=== PATIENT | female | born 1930 | race Caucasian/White ===

== ENCOUNTER 2016-12-16 20:21 | Inpatient (IN) | payer MEDICARE ==
[~2016-12-16] VITALS: Ht 172.7 cm; Wt 56.2 kg
--- NOTE | ~2016-12-16 | CT18 ---
[facility] A Service [facility] RADIOLOGY TEXT RESULTS PATIENT: AMRITA CHAN LOCATION: [place] [address]- : 31 UNIT #: [id number] AGE: [address]: Savanna Nieto MD SEX: F ORDER DR: [id number] [facility] [address] [place], [place] [address] [id number] I MR#: [id number] Acc #: [id number] NAME: AMRITA CHAN. : 1930 SEX: F STUDY DATE/TIME: 12/16/2016 21:34 UNIT: [facility] ROOM: [facility] STUDY DESCRIPTION: CT Angio Head Stroke Attending Physician: Savanna Nieto M.D. Ordering Physician: Jasbir Apple M.D. Primary Care Physician: No Primary Care Physician MEDICAL IMAGING REPORT This report is preliminary unless electronic signature is present EXAM CTA head and neck. INDICATIONS Focal neurological deficit. Intracranial aneurysm. Right-sided weakness and slurred speech for [address] angiography of the head and neck utilizing 100 mL Isovue-370 IV contrast. Coronal 3-D MIP reconstructions and standard sagittal reconstructions were obtained. Volume-rendered reconstructions were obtained. Curved planar reconstructions were also reviewed. This CT exam was performed with one or more of the following radiation dose reduction techniques: automatic exposure control, adjustment of mA and/or kV according to patient size, and iterative reconstruction. COMPARISON CT head 12/16/2016 and 04/10/2015. FINDINGS CTA NECK: Evaluation for significant carotid arterial stenosis is based upon NASCET criteria. There is a 3-vessel arch. The arch vessels have moderate atherosclerotic disease near their origins; however, they all appear to be widely patent. There is mild to moderate atherosclerotic disease involving the common carotid arteries and the internal carotid arteries; however, there is no evidence of a significant carotid arterial stenosis. The vertebral arteries have mild to moderate atherosclerotic disease, but there is no evidence of a significant stenosis. CTA HEAD: The intracranial internal carotid arteries are patent. There [facility] A Service [facility] RADIOLOGY TEXT RESULTS PATIENT: AMRITA CHAN LOCATION: [address] : 31 UNIT #: [id number] AGE: [address]: Savanna Nieto MD SEX: F ORDER DR: is mild atherosclerotic disease; however, there is no evidence of a significant stenosis. There is a saccular aneurysm involving the right MCA trifurcation. The neck of the aneurysm measures 0.5 cm with the aneurysm measuring up to 1.0 cm. This aneurysm is unchanged from at least 2008. The remainder of the middle cerebral artery is patent. The left middle cerebral artery is patent. The anterior cerebral arteries and the anterior communicating artery are patent. There is a small saccular aneurysm off the right A2 anterior cerebral artery measuring 0.4 x 0.3 cm. The neck of the aneurysm measure 0.2 cm. The vertebrobasilar arteries are within normal limits. There is mild atherosclerotic disease; however, there is no evidence of a significant stenosis, thrombosis, or aneurysm. Both posterior cerebral arteries are patent. No dural venous thrombus. No acute osseous abnormalities. IMPRESSION 1. Mild atherosclerotic disease of the carotid arteries, however, no evidence of a significant carotid arterial stenosis in the neck. 2. Mild atherosclerotic disease of the intracranial vasculature; however, no evidence of a significant stenosis, thrombosis, or aneurysm. 3. 1-cm peripherally calcified aneurysm at the right MCA trifurcation is unchanged from at least 2008. 4. 4-mm aneurysm of the A2 segment of the right anterior cerebral artery. Not mentioned above, there is a small 2-mm saccular aneurysm off the distal aspect of the left internal carotid artery. Dictated by... Terence Garnica M.D. THIS IS AN ELECTRONICALLY VERIFIED REPORT Terence Garnica M.D. at 12/17/2016 3:11 PM Niecy TD: 12/17/2016 13:18 JOB #: [id number] MEDICAL IMAGING REPORT Page 1 of 1 COPY
--- NOTE | ~2016-12-16 | CR72 ---
[facility] A Service of [facility] RADIOLOGY TEXT RESULTS PATIENT: AMRITA CHAN LOCATION: [address]21 : 31 UNIT #: [id number] AGE: [address]: Savanna Nieto MD SEX: F ORDER DR: [id number] [facility] [address] [place], [place] [address] [id number] I MR#: [id number] Acc #: [id number] NAME: AMRITA CHAN. : 1930 SEX: F STUDY DATE/TIME: 12/16/2016 20:44 UNIT: [facility] ROOM: [facility] STUDY DESCRIPTION: CR Chest Single View Portable Attending Physician: Savanna Nieto M.D. Ordering Physician: Ed Doctor [id number] [facility] Primary Care Physician: Primary Care Physician No MEDICAL IMAGING REPORT This report is preliminary unless electronic signature is present EXAM Single view chest INDICATION Chest pain and right-sided weakness for 1 day. FINDINGS Single portable AP view of the chest compared to 11/29/2016. Heart and mediastinal contours are unchanged. There is chronic interstitial opacities in both lungs. No pneumothorax or pleural effusion. There is severe arthrosis of the right glenohumeral joint. IMPRESSION No acute cardiopulmonary findings or significant interval change. Dictated by... Terence Garnica M.D. THIS IS AN ELECTRONICALLY VERIFIED REPORT Terence Garnica M.D. at 12/17/2016 3:08 PM TONY/chantale TD: 12/17/2016 12:04 JOB #: [id number] MEDICAL IMAGING REPORT Page 1 of 1 COPY
--- NOTE | ~2016-12-16 | HP ---
Unit #: [id number] #: [id number] Patient: AMRITA CHAN [id number] [facility] [address] [place], [place] [address] [id number] I MR#: [id number] NAME: AMRITA CHAN ROOM: [facility] Age: 86 Sex: F Admission Date: 12/16/2016 : 1930 Attending Physician: Elis Hartmann M.D. Primary Care Physician: No Primary Care Physician HISTORY AND PHYSICAL CHIEF COMPLAINT CVA. HISTORY OF PRESENT ILLNESS This 86-year-old female who is legally blind, hard of hearing with hypertension is admitted following a CVA. The patient was admitted to [facility] recently for pneumonia and sent to [facility]. At around 8:10 p.m., her son got her out of bed. She was unable to walk, had a right lower facial droop, unable to articulate and right-sided weakness more in the right arm. A CODE stroke was called and the patient was brought to this emergency department where head CT and CTA of the head and neck showed no acute disease. The case was discussed with Dr. Montanez and the patient was given TPA. Her speech is improved as is her right lower facial droop. She is still extremely weak in her right arm. PAST MEDICAL HISTORY 1. Essential hypertension. 2. Hyperlipidemia. 3. Goiter status post thyroidectomy with hypothyroidism. 4. Legally blind. 5. Hard of hearing. 6. Recent admission to [facility] for pneumonia. 7. Lumbar spinal fusion. 8. History of depression. 9. DJD. 10. Status post left mastectomy for breast cancer. 11. ORIF left hip fracture. SOCIAL HISTORY The patient is receiving rehab here at [facility]. She stopped smoking five years ago, does not drink alcohol. FAMILY HISTORY Noncontributory given patient's age. ALLERGIES None. SNF MEDICATIONS 1. Synthroid 0.1 mg daily. 2. Benazepril 40 mg daily. 3. Norvasc 5 mg daily. Unit #: [id number] #: [id number] Patient: AMRITA CHAN 4. Zocor 20 mg daily. 5. PRN Tylenol. 6. Rudyard. REVIEW OF SYSTEMS Difficult to obtain as the patient is extremely hard of hearing. PHYSICAL EXAMINATION GENERAL APPEARANCE: Pleasant, hard of hearing 86-year-old female who currently is in no acute distress. VITAL SIGNS: Temperature not yet obtained. Pulse 86. Respiration 16. Initial blood pressure I am told was a systolic of 105 but current systolic blood pressure is 169/76. O2 saturation is 97% on room air. HEENT: Eyes: PERRLA. Extraocular muscles are intact. Pharynx is benign. NECK: Supple without adenopathy or thyromegaly. CHEST: Clear. CARDIAC: Normal S1, S2. Very soft systolic murmur best heard at the upper sternal borders. ABDOMEN: Bowel sounds are present. No hepatosplenomegaly, tenderness or masses. EXTREMITIES: Without edema. Pedal pulses are diminished. NEUROLOGIC: The patient has been very hard of hearing and she is legally blind. Her speech, however, is fluent. She is alert and oriented x2. She has good strength on the left, is able to move her right leg fairly well, probably 4/5 strength. She is, however, extremely weak in the arm and maybe has some tone in the right arm but otherwise her right arm and right grasp are pretty flaccid. Right great toe is upgoing. DIAGNOSTIC STUDIES LABORATORY: Hematocrit 38. Normal white count, platelet count and coags. SMA-12: Glucose 216, BUN 28, sodium 129, calcium 8.3. IMAGING: Head CT: No acute disease. CTA of the head and neck show mild atherosclerotic disease in the carotids, 1 cm aneurysm at the trifurcation which is unchanged, 4 mm aneurysm at the A2 segment of the right LUCY. CARDIOVASCULAR: EKG shows a sinus rhythm rate 84, LVH. ASSESSMENT 1. CVA with mainly right-sided weakness at this time. The patient did have expressive aphasia along with mild right-sided weakness and right lower facial droop before the TPA. She is somewhat improved. 2. Intracranial aneurysms noted on CTA. 3. Essential hypertension. 4. Legally blind. 5. Hard of hearing. 6. Hypothyroidism status post thyroidectomy. 7. Hyperlipidemia. 8. Status post left mastectomy for breast cancer. PLAN 1. TPA was given. Neurology consulted. 2. Post TPA orders. 3. NPO except for some of the patient's blood pressure medicines. Cardene will be given for high blood pressures as well. 4. Check serial cardiac enzymes, lipid profile in the morning along with repeat labs in the morning. 5. SCDs for DVT prophylaxis. Unit #: [id number] #: [id number] Patient: AMRITA CHAN 6. The patient is a FULL CODE. 7. Check hemoglobin A1C given initial elevated glucose. 8. Urinalysis. Critical care time spent in evaluating this patient was 30 minutes. Dictated by Candy Frost/jeri TD: 12/17/2016 06:46 JOB #: [id number] HISTORY AND PHYSICAL Page 1 of 1 X lEis Hartmann MD X HISTORY AND PHYSICAL
--- NOTE | ~2016-12-16 | EKG ---
PATIENT: AMRITA CHAN UNIT #: [id number] Ventricular Rate: 84 BPM Atrial Rate: 84 BPM P-R Interval: 166 ms QRS Duration: 102 ms Q-T Interval: 382 ms QTC Calculation(Bezet): 451 ms P [place]: 72 degrees Calculated R [place]: 41 degrees Calculated T [place]: 69 degrees Diagnosis Line: Normal sinus rhythm Diagnosis Line: Moderate voltage criteria for LVH, may be normal Diagnosis Line: variant Diagnosis Line: Otherwise normal ECG Diagnosis Line: When compared with ECG of 24-MAY-2011 06:39, Diagnosis Line: No significant change was found Diagnosis Line: Confirmed by DARREN RYDER MD ([id number]) on 12/19/2016 Diagnosis Line: 7:55:49 AM INTERPRETING MD: BRITNI CANO
--- NOTE | ~2016-12-16 | DS ---
Unit #: [id number] #: [id number] Patient: AMRITA CHAN [id number] [place] [id number] [facility]. [place], [place] [address] [id number] I MR#: [id number] NAME: AMRITA CHAN. ROOM: 329 Age: 86 Sex: F Admission Date: 12/16/2016 : 1930 Discharge Date: 12/20/2016 Attending Physician: Savanna Nieto M.D. Primary Care Physician: No Primary Care Physician DISCHARGE SUMMARY PRINCIPAL DIAGNOSES 1. Left MCA frontal embolic CVA with subsequent right arm greater than right leg weakness. The patient is status post Alteplase. 2. Aortic atheroma. 3. Toxic metabolic encephalopathy. Now resolved. 4. 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 5. Hypertension, uncontrolled. 6. Non-anion gap metabolic acidosis. Now resolved. 7. Hypothyroidism. 8. Legally blind. 9. Hard of hearing. 10. Known intracranial aneurysm. 11. Hyperlipidemia. 12. History of breast cancer. 13. Mild protein malnutrition. 14. Mild vitamin B12 deficiency with vitamin B12 level of 267. 15. Osteoporosis. CONSULTANTS Dr. Montanez, neurology. PROCEDURES MARGARITA on 12/18/2016 with ejection fraction of 55%. Septal asymmetric hypertrophy noted. Mildly dilated left atrium noted. Mild mitral valve prolapse. Mild to moderate mitral regurgitation. Mild tricuspid regurgitation. No evidence of clot in the left atrial appendage or vegetation. Severe diffuse extensive atherosclerotic plaque in the aorta with grade 4 calcified and fresh atheromas noted. DIAGNOSTIC DATA IMAGING: CT of the head without contrast on 12/16/2016 with no acute intracranial findings. Chest x-ray on 12/16/2016 with no acute findings. Severe arthrosis of the right glenohumeral joint was noted. CT angiogram of the neck on 12/16/2016 with mild atherosclerotic disease of the carotid arteries, but no evidence of significant carotid arterial stenosis in the neck. Mild atherosclerotic disease of the intracranial vasculature, but no evidence of stenosis, thrombosis or aneurysm. There is a 1 cm calcified aneurysm of the right MCA trifurcation that is stable since 2008. There is a 4 mm aneurysm of the A2 segment of the right anterior cerebral artery. There is a small 2 mm saccular aneurysm off the Unit #: [id number] #: [id number] Patient: AMRITA CHAN left internal carotid artery. MRI of the brain without contrast on 12/17/2016 with an acute to late acute nonhemorrhagic infarct in the left posterior frontal operculum. It extends toward the posterior left insular cortex. 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 Scattered T2 signal lesions in the brain consistent with chronic microvascular ischemia change. CLINICAL HISTORY/HOSPITAL COURSE Ms. Chan is an 86-year-old female transferred from rehab after it was noted that she was unable to walk and had right facial droop. She was also having difficulty with dysarthria. Code stroke was called in the emergency room and the patient was administered Alteplase and subsequently admitted to the ICU. Dr. Montanez was consulted. The patient underwent MRI of the brain which fortunately did not reveal any post Alteplase hemorrhage, but did indeed reveal stroke. Given imaging up to that point had been unremarkable and there were concerns about a cardioembolic source, the patient underwent MARGARITA with findings of significant atheroma of the aorta, which was likely her source of stroke. She has been placed on bridging Lovenox in addition to Coumadin. The risks and benefits of this treatment have been discussed with both her son and granddaughter. Will also need risk factor modification, including blood pressure control and lipid lowering therapy. She continues to have some significant right-sided weakness, much greater in the right arm and the right leg, and per physical therapy is most appropriate for subacute rehab, which is being arranged. The patient did have some significant encephalopathy upon presentation, which lasted approximately 72 hours. She does also have underlying dementia with behavioral disturbance. However, she has been placed on low-dose Risperdal and she seems to be doing a bit better. All of this has been discussed with her family as well. The patient has otherwise at this point been doing well. Blood pressure was initially elevated, which is physiologically appropriate. Blood pressure is now more controlled. She also had a non-anion gap metabolic acidosis, moreso when she was not eating, but this has also resolved. The patient will be discharged to rehab when a bed is available. DISCHARGE CONDITION Stable. DISCHARGE DISPOSITION Discharge to rehab. DISCHARGE MEDICATIONS 1. Tylenol 650 mg p.o. q.4 h. p.r.n. mild pain. 2. Lovenox 60 mg subcutaneous q.12 h., to stop when INR is greater than or equal to 2.0. 3. Norvasc 10 mg daily. 4. Lipitor 40 mg at bedtime. 5. Benazepril 20 mg daily. 6. Roma 5/325 mg 1 tablet p.o. t.i.d. p.r.n. pain. 7. Levothyroxine 100 mcg p.o. daily. 8. Coumadin 3 mg daily with goal INR 2-3. Unit #: [id number] #: [id number] Patient: AMRITA CHAN 9. Stadol 0.5 mg p.o. at nighttime. DIET The patient was instructed to follow a heart healthy diet. She can increase her activity as tolerated under the care of physical therapy and occupational therapy. I will note she is currently in a sling of her right upper extremity. DISCHARGE FOLLOWUP 1. The patient needs followup BMP on 12/21/2016, with goal INR of 2-3 and discontinuation of Lovenox when INR is therapeutic. 2. She will follow up with Dr. Bahman Boswell of outpatient neurology upon discharge from rehab. Further discussion with family regarding possible transition to long-term care after subacute rehab can be had at the rehab facility. Time spent on discharge today 32 minutes. Dictated by... Savanna Nieto M.D. TONE/shahab TD: 12/20/2016 13:43 JOB #: [id number] DISCHARGE SUMMARY Page 1 of 1 X Savanna Nieto MD X DISCHARGE SUMMARY
--- NOTE | ~2016-12-16 | MR18 ---
[facility] A Service of [facility] & [facility] RADIOLOGY TEXT RESULTS PATIENT: AMRITA CHAN LOCATION: [address]21 : 31 UNIT #: [id number] AGE: [address]: Savanna Nieto MD SEX: F ORDER DR: [id number] [facility] [address] [place], [place] [address] [id number] I MR#: [id number] Acc #: [id number] NAME: AMRITA CHAN. : 1930 SEX: F STUDY DATE/TIME: 12/17/2016 18:26 UNIT: [facility] ROOM: [facility] STUDY DESCRIPTION: MR Brain Wo Contrast Attending Physician: Savanna Nieto M.D. Ordering Physician: Patti Geller A.P.R.N. Primary Care Physician: Porsche Primary Care Physician MRI CENTER REPORT This report is preliminary unless electronic signature is present. EXAM MRI of the brain without contrast, dated 12/17/2016. COMPARISON CT head without contrast and CT angiogram head and neck dated 12/16/2016. HISTORY Stroke yesterday with t-PA on 12/16/2016. History of hypertension. Patient is legally blind. History of breast cancer diagnosed 25 years ago. Patient also has history of dementia. Probable TIA in the past. FINDINGS Multisequence, multiplanar imaging of the brain was obtained without contrast. Motion artifact is noted in multiple sequences. Mild restricted diffusion lesion is noted in the posterior left frontal operculum extending to the posterior left insular cortex. It is difficult to measure given its irregular shape. It is about 3.4 x 1.8 cm in greatest axial dimensions. They are not well seen in the T2 sequences particularly in the posterior left frontal operculum with some increased T2-signal in the posterior left insular cortex. Also seen at multiple hyperintense T2-signal lesions in the periventricular white matter with some in the subcortical white matter. Increased T2 lesions are also noted in the superior aspect of bilateral basal ganglia. Thick slices through the sella with the pituitary gland, pineal region and upper cervical spine do not demonstrate any significant abnormality. Paranasal sinuses, mastoid air cells and orbits do not demonstrate any significant abnormality. There is a prominent vascular flow void noted in the axial T2 sequence measuring 8 x 7.5 mm (series 10, image 10). It is suspicious for an aneurysm. Motion artifact is seen in multiple images. IMPRESSION 1. There appears to be an acute to late acute nonhemorrhagic infarct in the region of the left posterior frontal operculum. It extends [facility] A Service of [facility] RADIOLOGY TEXT RESULTS PATIENT: AMRITA CHAN [facility] UNIT #: [id number] AGE: [address]: Savanna Nieto MD SEX: F ORDER DR: towards the posterior left insular cortex but it has some signal changes favoring a more subacute ischemic insult in the posterior insular cortex. 2. 8 x 7.5 mm right middle cerebral artery aneurysm is suspected along the M1 segment close to the right MCA trifurcation. Refer to CT angiogram head and neck from yesterday. 3. Scattered multiple hyperintense T2-signal lesions are noted in the brain, likely related to chronic microvascular ischemic change or migraine based on age and statistics. Dictated by... Kelsie Singh M.D. THIS IS AN ELECTRONICALLY VERIFIED REPORT Kelsie Singh M.D. at 12/18/2016 11:33 AM CPR/alex TD: 12/18/2016 00:45 JOB #: [id number] MRI CENTER REPORT Page 1 of 1 COPY
--- NOTE | ~2016-12-16 | CT24 ---
[facility] A Service of [facility] & [facility] RADIOLOGY TEXT RESULTS PATIENT: AMRITA CHAN LOCATION: [place] [address]- : [birth year] UNIT #: [id number] AGE: [address]: Savanna Nieto MD SEX: F ORDER DR: [id number] [facility] [address] [place], [place] [address] [id number] I MR#: [id number] #: [id number] NAME: AMRITA CHAN. : 1930 SEX: F STUDY DATE/TIME: 12/16/2016 21:34 UNIT: [facility] ROOM: [facility] STUDY DESCRIPTION: CT Angio Neck Stroke Attending Physician: Savanna Nieto M.D. Ordering Physician: Ed Collin Apple M.D. Primary Care Physician: No Primary Care Physician MEDICAL IMAGING REPORT This report is preliminary unless electronic signature is present EXAM CT-A neck, stroke protocol, 12/17/2016. FINDINGS Please see CT-A head, stroke protocol, for results. Dictated by... Terence Garnica M.D. THIS IS AN ELECTRONICALLY VERIFIED REPORT Terence Garnica M.D. at 12/17/2016 3:10 PM Niecy TD: 12/17/2016 13:25 JOB #: [id number] MEDICAL IMAGING REPORT Page 1 of 1 COPY
--- NOTE | ~2016-12-16 | A ---
[facility] Nutrition Therapy DATE: 12/17/16 Patient: AMRITA CHAN Physician: KATRIN Address: [address] Room/Bed: [address], Zip: [place] [address] Admit Date: 12/16/16 Date of : 31 Height: 5 8 Weight: 135 61.6 NUTRITIONAL ASSESSMENT: REASON: Dx and NPO in ICU nutrition assessment 86 yo female admitted for stroke s/p TPA PMH: Legally blind, [place], HTN, HLD, goiter s/p thyroidectomy, hypothyroidism, PNA, depression, breast cancer s/p left mastectomy Anthropometrics: Ht: 5'7" Wt: 61.6 kg BMI: 21.3 Labs: Gluc 216 BUN 28 Ca++ 8.3 Accuchecks 180 GFR 45.8 Meds: Synthroid I/O & Bowel function: 1839/1125, last BM unknown Skin Integrity: Bruises scattered Edema: None noted Estimated Nutrition Needs: 3290-3265 kcals (25-30 kcals/kg) 62-74 grams protein (1.0-1.2 grams/kg) Diet: NPO Assessment: Chart reviewed, events noted. 86 yo female admitted from [facility] for facial droop, CVA s/p TPA. Pt is currently NPO in the ICU. Per NATIONAL SALES, CONSERVATION SCIENCE TEACHER will likely evaluate the pt tomorrow per stroke protocol. Of note, the pt is hard of hearing and legally blind. A1C is pending due to hyperglycemia. Pt has no apparent history of DM. Pt is not appropriate for diet education at this time. Please see nutrition recommendations below. Dx: Inadequate protein-energy intake RT Dx, CVA AEB NPO status, CONSERVATION SCIENCE TEACHER to evaluate the pt in the AM. Intervention: 1. CONSERVATION SCIENCE TEACHER 2. Diet per CONSERVATION SCIENCE TEACHER recommendations 3. EN if PO diet not feasible [facility] Nutrition Therapy DATE: 12/17/16 Patient: AMRITA CHAN Physician: KATRIN Address: [facility] [address] Room/Bed: [address], Zip: [place] [address] Admit Date: 12/16/16 Date of : 31 Height: 5 8 Weight: 135 61.6 Monitoring, Evaluation and Goals: 1. Oral intake; advance diet per CONSERVATION SCIENCE TEACHER recommendations if feasible 2. Improve labs; glucose, BUN, Ca++, GFR 3. EN; initiate if PO diet is not feasible Recommendations: 1. Once medically feasible, recommend CONSERVATION SCIENCE TEACHER evaluation. Advance diet per CONSERVATION SCIENCE TEACHER recommendations as appropriate. No further dietary restrictions recommend at this time until adequacy of PO intake can be assessed. RD will follow up to recommend supplements as needed. 2. If unable to advance to PO diet, consider obtaining enteral access and initiating enteral nutrition with Jevity 1.5 @ 20 mL/hr. Increase by 10 mL q 8 hrs as tolerated to goal of 45 mL/hr to provide: 1620 kcals/ 69 grams protein/ 821 mL free H20 IF THE PT IS RECEIVING SYNTHROID VIA DHT + EN: Goal rate will be Jevity 1.5 @ 50 mL/hr x 22 hrs to account for holding EN for one hour before and after Synthroid administration* This will provide: 1650 kcals/ 70 grams protein/ 836 mL free H20 Pt is at moderate nutritional risk. RD will follow hospital course per protocol. Respectfully, DUNG HERNANDEZ RD, LD Food and Nutritional Services [facility] cc: client file
--- NOTE | ~2016-12-16 | CO ---
Unit #: [id number] #: [id number] Patient: AMRITA CHAN [id number] [facility] [address]. [place], [place] [address] [id number] MR#: [id number] NAME: AMRITA CHAN ROOM: 329 Age: 86 Sex: F Admission Date: 12/16/2016 : 1930 Attending Physician: Savanna Nieto M.D. Primary Care Physician: Primary Care Physician No Consultation Date: 12/17/2016 CONSULTATION REPORT PRIMARY CARE PHYSICIAN Not listed. CONSULTING PHYSICIAN Dr. Elis Hartmann, also code stroke protocol. PATIENT IDENTIFICATION This is an 86-year-old, right-handed, female, evaluated in ICU room #21 at [facility]. SOURCE OF INFORMATION Obtained from the patient's son as well as medical record. HISTORY OF PRESENT ILLNESS This is an 86-year-old, right-handed, female with past medical history of hypertension, legal blindness, significant hard of hearing, hyperlipidemia, alcohol abuse, who presents to [facility] with right-sided weakness, expressive aphasia from [facility]. The patient was actually just recently discharged from [facility] for pneumonia. She was sent to [facility] at [facility] for rehab. Around eight o'clock in the evening, the patient was last noted to be well at her baseline per her son. He has been in her room and been visiting her frequently as she lived with him prior to her hospitalization. A little bit after that, around 0810 hours or 0815 hours, she apparently needed to get out of bed; however when her son went to help her, she was unable to walk. She had right lower facial droop. She had right arm and right leg weakness, essentially paralysis and was unable to speak clearly. At first, she was just repeating "I can't walk" according to the son, but he states then her speech became incoherent and she was unable to communicate or follow commands appropriately. I am uncertain whether a MET call was made or a code stroke first; however once the code stroke was called, the patient was brought down for CT, CTA, and then to the ER for further evaluation. The case was discussed with Dr. Montanez, who saw the patient via telemedicine robot at I believe 0827 hours and decision was made for alteplase. She arrived back to the ED by 0845 hours after imaging and had further assessment by the ED physician. Alteplase was administered 52 minutes after code stroke was initiated. Her speech improved and her right side weakness and facial droop improved; however, she does continue to have some weakness in her right upper extremity. Her NIH was documented at the time of code stroke as being 13. I believe the laborer hide house, who initially saw the patient may have documented her NIH as 16 initially. Her INH today is 7. She does have some right-sided weakness. She has some mild confusion, but she can name and identify and follow simple commands. She is legally blind and hard of Unit #: [id number] #: [id number] Patient: AMRITA CHAN hearing, but again NIH appears to be approximately 7 at this time and she is significantly improved from yesterday evening.. She does have some dysarthria, but no aphasia. Her right facial weakness has improved significantly and in her right lower extremity is improved as well. No report of any exacerbating or alleviating factors or any other associated symptoms. Onset was sudden and her last known well was while within the window for treatment with alteplase. She was not considered for thrombectomy as her CT angiogram did not show any vascular cutoff or occlusion or proximal clot. Dr. Montanez did review imaging at the time of evaluation and felt as though there may have been some possible distally decreased flow in the MCA on the left, but again no proximal cutoff. PAST MEDICAL HISTORY 1. Essential hypertension. 2. Hyperlipidemia. 3. Goiter, status post thyroidectomy. 4. Hypothyroidism. 5. Legally blind. 6. Hard of hearing. 7. Recent admission to [facility] for pneumonia. 8. Lumbar spinal fusion. 9. Depression. 10. DJD. 11. Status post left mastectomy for breast cancer. 12. ORIF of left hip fracture. 13. History of intracranial aneurysm, evaluated according to the son in the past about 7 years ago and decision was to medically manage and again with no surgical intervention. 14. History of alcohol abuse. FAMILY HISTORY Noncontributory given the patient's age in regard to the presenting condition. SOCIAL HISTORY The patient lived at home with her son prior to her hospitalization at [facility]. She transferred here from [facility] at [facility]. She was sent there for rehabilitation following her hospital stay at [facility]. She is a reformed smoker. She stopped 5 years ago. She is not a current drinker. 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 I am not exactly certain when she stopped drinking, but has not drank in a long time. No report of any illicit drug use. ALLERGIES No known drug allergies. HOME MEDICATIONS Include, 1. Synthroid. 2. Benazepril. 3. Norvasc. 4. Zocor. 5. P.r.n. Tylenol. 6. Hanna. REVIEW OF SYSTEMS Difficult to obtain. The patient is extremely hard of hearing. Pertinent Unit #: [id number] #: [id number] Patient: AMRITA CHAN positives are as discussed above. Also, I did this incoordination with the patient's son at the bedside, who helped with answering questions regarding review of systems. Please see above. PHYSICAL EXAMINATION VITAL SIGNS: Temperature 98.1. She has been afebrile. Pulse 76, respirations 18, blood pressure 164/71, and oxygen saturation 97%. Height 5 feet 8 inches, weight 135 pounds. BMI 20. NEUROLOGIC: The patient is resting comfortably. She does get a little restless with stimulation. She is legally blind. She is very hard of hearing. Disabled to hear and response to very loud voice. She can name and identify and follow commands. She has some mild dysarthria. No aphasia at this time or apraxia. Cranial nerve exam, I am unable to fully assess her king of vision. She does not respond to threats in the primary or peripheral visual king, but she is legally blind. Eyes are, however, conjugate without ptosis or nystagmus. Pupils are equal, round, reactive, 2+, brisk. Extraocular movements are intact. Sensation of face and scalp is intact. Strength of the muscles of the facial expression does not reveal any facial paralysis at this time or seventh cranial nerve findings. Hearing is intact to loud voice, but she is very hard of hearing. Tongue is midline and unable to fully visualize uvula and palate. Head turning and shoulder shrug are unremarkable. Neck is supple. Motor exam, she demonstrates normal bulk and tone on the left. Strength is 5/5 in the right upper extremity. She can lift against gravity, but does not do well with resistance. She wants to use her left hand to lift her right arm when I asked her to lift her right arm after instructed her to try to lift her arm independently, which is difficult for her. She does make attempts to pull away though when I assessed her assisted living director and her assisted living director strength is 4/5. Her right lower extremity appears to be much more intact. She was apparently flaccid yesterday. She only has a very mild drift of her right lower extremity, but it does not fall to the bed. She can lift against gravity and a little bit against resistance as well. Coordination is unremarkable. Gait and Romberg are deferred. Reflexes, unable to elicit. Toes, upgoing on the right. DIAGNOSTIC STUDIES IMAGING STUDIES: CT of the head without contrast per stroke protocol on 12/16/2016; impression per Radiology report, no acute intracranial findings. CT angiogram of the head and neck per stroke protocol on 12/16/2016; impression per Radiology report, 1. Mild atherosclerotic disease of the carotid arteries; however, no evidence of significant carotid arterial stenosis in the neck. 2. Mild atherosclerotic disease of intracranial vasculature; however, no evidence of significant stenosis, thrombosis, or aneurysm. 3. A 1 cm peripherally calcified aneurysm of the right MCA trifurcation unchanged from at least 2008. 4. A 4 mm aneurysm of the A2 segment of the right anterior cerebral artery, not mentioned above. 5. 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 Dr. Montanez reviewed the imaging and again there is decent amount of atherosclerotic disease and calcification, but no vascular cut off or hemodynamically significant narrowing. LABORATORY STUDIES: B12 is 267. PT 11.3, INR 1, and PTT 29. CRP less than 0.5. Sodium 133, potassium 5.1, chloride 103, CO2 is 20, glucose 87, BUN 20, creatinine is 1, estimated GFR 51.4, calcium 8.6, AST 18, ALT 12, alkaline phosphatase 78, total protein 6, and albumin 3.5. TSH 1.04. White blood cell count 8.9, hemoglobin is 12.8, hematocrit is 39, and platelet count is 183. Troponin is less than 0.03 x3 sets. CK 33. White Unit #: [id number] #: [id number] Patient: AMRITA CHAN count on arrival was 7.1. IMPRESSION 1. Acute left hemispheric stroke, status post alteplase in our emergency department on arrival in a patient with right-sided weakness, altered speech, likely left middle cerebral artery territory ischemic stroke, significantly improved following alteplase administration. Concern for cardioembolic origin. 2. 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 Please see above. Partially calcified and essentially unchanged since 2008. Please see above for details and please also see past medical history. 3. Possible dementia. The patient's son reports that she has had an evaluation for dementia in the past and reports that she has had a history of alcoholism in the past, but he reports at her baseline prior to admission to [facility] that she was alert and oriented, able to make her needs known, and lived with him; but did have exhibited some memory loss. 4. Hypertension. 5. Hyperlipidemia. 6. Legal blindness. 7. Hard of hearing. 8. Hypothyroidism, please see past medical history above. 9. Recent pneumonia. PLAN We will request MRI of the brain, MARGARITA in the morning. She has no prior known history of CAD or atrial fibrillation or valve disease. We will ask PT, OT, and Speech to follow tomorrow. Otherwise, postoperatively placed orders are in effect and we will continue. We will follow closely. We discussed with the son. Dr. Montanez, who has seen the patient and evaluated, and discussed with the son as well. Further recommendations pending workup and further clinical course. We thank you very much for allowing us to assist in care of this patient. Dictated by... Patti Geller A.P.R.N. for Candy Carlos/ingrid TD: 12/18/2016 15:44 JOB #: [id number] CONSULTATION REPORT Page 1 of 1 X Patti Geller [employer] PROFESSIONAL X CONSULTATION REPORT
--- NOTE | ~2016-12-16 | FU ---
[facility] Nutrition Therapy DATE: 12/20/16 Patient: AMRITA CHAN Physician: KATRIN Address: [address] Room/Bed: [address] [place] [address], Zip: [place] [address] Admit Date: 12/16/16 Date of : 31 Height: 5 8 Weight: 123 56.2 NUTRITION MONITORING/FOLLOW-UP: Reason: Follow up Anthropometrics: Ht: 5'7" Wt: 61.6 kg BMI: 21.6 Wt 12/20: 56.2 kg (lift weight) Labs: Accuchecks 79 GFR 45.8 Meds: Coumadin, sodium bicarbonate, lipitor, synthroid I&O's: 1470/8, last BM 12/18 Skin: Bruises scattered, no edema Diet: Regular + thin liquids Assessment: Chart reviewed, events noted. Pt is now on tele floor with diet ordered yesterday per BULK STATION AGENT recommendations (Regular consistency + thin liquids). Pt requires feeding assistance per BULK STATION AGENT eval. RD spoke with the pt at bedside. Pt had breakfast tray in front on her and Ensure supplement on tray. Pt consumed ~30% of her eggs so far and reported that she was will going to eat more. Pt likes Ensure supplements and reported having a "pretty good" appetite. CHUY spoke with the pt's RN, who was going to go back in and help the pt finish her breakfast. Pt is blind and is unable to feeds herself; however, she does drink the Ensure supplements by herself per RN report. RN also reports that the pt will likely not be able to eat the meat on her tray, as she has no teeth. Pt is awaiting rehab placement per information in chart. Please see recommendations below. Dx: Inadequate protein-energy intake RT Dx, CVA AEB NPO status, BULK STATION AGENT to evaluate the pt in the AM- RESOLVED New Dx: Potential for inadequate nutritional intake RT advanced age, poor dentition, pt unable to feed herself AEB pt requires feeding assistance, BULK STATION AGENT evaluation, RN report. Intervention: 1. Regular diet- change to soft foods? 2. Ensure BID Monitoring, Evaluation and Goals: 1. Oral intake; advance diet per BULK STATION AGENT recommendations if feasible- MET 2. Improve labs; glucose, BUN, Ca++ (IMPROVED), GFR (UNCHANGED) 3. EN- NO LONGER RELEVANT [facility] Nutrition Therapy DATE: 12/20/16 Patient: AMRITA CHAN Physician: KATRIN Address: [address] Room/Bed: [address] [place] [address], Zip: [place] [address] Admit Date: 12/16/16 Date of : 31 Height: 5 8 Weight: 123 56.2 NEW GOALS: 1. Oral intake; tolerate >50-75% of meals and supplements Recommendations: 1. Consider changing the pt to a mechanical soft diet, as RN reports that the pt has poor dentition and is likely unable to chew tough meats. 2. Ensure BID for supplemental nutrition. 3. Appreciate staff encouraging and assisting the pt with intake during meals. Status: Pt is at mild nutritional risk. Respectfully, DUNG HERNANDEZ RD, LD Food and Nutritional Services [facility] cc: client file
--- NOTE | ~2016-12-16 | CT72 ---
[facility] A Service of [facility] RADIOLOGY TEXT RESULTS PATIENT: AMRITA CHAN LOCATION: [place] [address] : [birth year] UNIT #: [id number] AGE: [address]: Savanna Nieto MD SEX: F ORDER DR: [id number] [facility] [address]. [place], [place] [address] [id number] I MR#: [id number] Acc #: [id number] NAME: AMRITA CHAN : 1930 SEX: F STUDY DATE/TIME: 12/16/2016 20:29 UNIT: [facility] ROOM: [facility] STUDY DESCRIPTION: CT Head Wo Contrast Stroke Attending Physician: Savanna Nieto M.D. Ordering Physician: Ed Doctor [id number] [facility] Primary Care Physician: Primary Care Physician No MEDICAL IMAGING REPORT This report is preliminary unless electronic signature is present EXAM CT head INDICATION Focal neurological deficit. Right-sided weakness and slurred speech for [address] of the head without contrast. This CT exam was performed with one or more of the following radiation dose reduction techniques: automatic exposure control, adjustment of mA and/or kV according to patient size, and iterative reconstruction. COMPARISON CT head dated 04/10/2015. FINDINGS There is no acute intracranial hemorrhage, mass lesion, or acute infarct. Paez-white matter differentiation is maintained. Patient has atrophy and chronic small vessel changes. There is an old lacunar infarct in the right basal ganglia. A peripherally calcified mass near the right MCA trifurcation likely represents a peripherally calcified aneurysm. This is unchanged from at least 09/15/2008. No extraaxial collections. No acute osseous abnormalities. IMPRESSION No acute intracranial findings. Dictated by... Terence Garnica M.D. [facility] A Service [facility] RADIOLOGY TEXT RESULTS PATIENT: AMRITA CHAN LOCATION: [place] [address] : [birth year] UNIT #: [id number] AGE: [address]: Savanna Nieto MD SEX: F ORDER DR: THIS IS AN ELECTRONICALLY VERIFIED REPORT Terence Garnica M.D. at 12/17/2016 3:07 PM Matthew TD: 12/17/2016 11:54 JOB #: [id number] MEDICAL IMAGING REPORT Page 1 of 1 COPY
[~2016-12-16 20:21] MED LIST: BENAZEPRIL HCL40 MG PO; CELEXA20 MG PO; HYDROCODON-ACE1 EAC7 PO; KEFLEX500 M1 PO; LEVOTHYROXINE100 MCG PO; NAPROSYN-EC500 M1 PO; NAPROSYN500 MG PO; SIMVASTATIN20 MG PO; SYNTHROID125 PO; TYLENOL #3 PO; ZOCOR PO
[2016-12-16 20:42] LABS: BASOPHIL# 0.1 X10e3 (0-0.3); BASOPHIL% 0.9 % (0-2.5); EOSINOPHIL# 0.2 X10e3 (0-0.7); EOSINOPHIL% 2.8 % (0.0-7.0); HEMOGLOBIN 12.6 gm/dL (12.0-16.0); LYMPHOCYTE# 1.9 X10e3 (1.0-3.5); LYMPHOCYTE% 26.9 % (17.0-45.0); MEAN CELL VOLUME 88.5 FL (83-96); MEAN CORPUSCULAR HEMOGLOBIN 29.4 PG (28-34); MEAN CORPUSCULAR HGB CONC 33.2 g/dL (30-36); MEAN PLATELET VOLUME 8.2 FL (6.5-11.5); MONOCYTE# 0.4 X10e3 (0-1.0); MONOCYTE% 5.4 % (3.0-12.0); NEUTROPHIL# 4.6 X10e3 (1.5-7.1); PLATELET COUNT 194 X10e3 (140-420); WHITE BLOOD COUNT 7.1 X10e3 (4.0-10.5)
[2016-12-16 20:43] LABS: DIFF IND NO
[2016-12-16 20:46] LABS: POC - CREATININE 1.09 mg/dL (0.44-1.03)
[2016-12-16 20:48] LABS: PARTIAL THROMBOPLASTIN TIME 30.7 SECONDS (23.5-31.3); PROTHROMBIN TIME (PATIENT) 11.2 SECONDS (10.0-11.7)
[2016-12-16 21:04] LABS: ALBUMIN SERUM 3.6 g/dL (3.5-5.0); BILIRUBIN, DIRECT 0.1 mg/dL (0.0-0.2); BILIRUBIN,INDIRECT 0.3 mg/dL (0.0-0.9); BILIRUBIN,TOTAL 0.4 mg/dL (0.2-2.0); BUN/CREATININE RATIO 25.45; CALCIUM SERUM 8.3 mg/dL (8.4-10.2); CREATININE SERUM 1.1 mg/dL (0.6-1.4); GLOM FILT RATE Estimated 45.8 mL/min (>60); POTASSIUM 4.6 mmol/L (3.5-5.1); PROTEIN TOTAL SERUM 6.3 g/dL (6.0-8.3)
[2016-12-17 00:22] LABS: CK TOTAL 33 IU/L (26-140)
[2016-12-17 04:01] LABS: CK TOTAL 45 IU/L (26-140)
[2016-12-17 10:40] LABS: CALCIUM SERUM 8.6 mg/dL (8.4-10.2); GLOM FILT RATE Estimated 51.4 mL/min (>60); POTASSIUM 5.1 mmol/L (3.5-5.1)
[2016-12-17 11:12] LABS: BASOPHIL# 0.1 X10e3 (0-0.3); EOSINOPHIL# 0.1 X10e3 (0-0.7); EOSINOPHIL% 1.7 % (0.0-7.0); HEMOGLOBIN 12.8 gm/dL (12.0-16.0); LYMPHOCYTE# 1.4 X10e3 (1.0-3.5); MEAN CELL VOLUME 88.1 FL (83-96); MEAN CORPUSCULAR HEMOGLOBIN 28.9 PG (28-34); MEAN CORPUSCULAR HGB CONC 32.8 g/dL (30-36); MEAN PLATELET VOLUME 8.3 FL (6.5-11.5); MONOCYTE# 0.4 X10e3 (0-1.0); MONOCYTE% 4.3 % (3.0-12.0); NEUTROPHIL# 6.9 X10e3 (1.5-7.1); PLATELET COUNT 183 X10e3 (140-420); RED BLOOD COUNT 4.43 X10e (3.90-5.30); RED CELL DISTRIBUTION WIDTH 13.8 % (11.0-15.5); WHITE BLOOD COUNT 8.9 X10e3 (4.0-10.5)
[2016-12-17 11:22] LABS: DIFF IND NO
[2016-12-17 12:19] LABS: ALBUMIN SERUM 3.5 g/dL (3.5-5.0); BILIRUBIN,TOTAL 0.9 mg/dL (0.2-2.0); CALCIUM SERUM 8.6 mg/dL (8.4-10.2); GLOM FILT RATE Estimated 51.4 mL/min (>60); POTASSIUM 5.1 mmol/L (3.5-5.1)
[2016-12-17 13:27] LABS: PROTHROMBIN TIME (PATIENT) 11.3 SECONDS (10.0-11.7)
[2016-12-17 20:19] LABS: BASOPHIL% 0.6 % (0-2.5); EOSINOPHIL# 0.2 X10e3 (0-0.7); EOSINOPHIL% 2.8 % (0.0-7.0); HEMATOCRIT 39.9 % (35.0-45.0); LYMPHOCYTE# 1.6 X10e3 (1.0-3.5); LYMPHOCYTE% 21.8 % (17.0-45.0); MEAN CELL VOLUME 89.4 FL (83-96); MEAN CORPUSCULAR HGB CONC 32.5 g/dL (30-36); MEAN PLATELET VOLUME 8.2 FL (6.5-11.5); MONOCYTE# 0.4 X10e3 (0-1.0); MONOCYTE% 6.2 % (3.0-12.0); NEUTROPHIL# 4.9 X10e3 (1.5-7.1); NEUTROPHIL% 68.6 % (40-75); PLATELET COUNT 170 X10e3 (140-420); RED BLOOD COUNT 4.46 X10e (3.90-5.30); RED CELL DISTRIBUTION WIDTH 13.7 % (11.0-15.5); WHITE BLOOD COUNT 7.2 X10e3 (4.0-10.5)
[2016-12-17 20:20] LABS: DIFF IND NO
[2016-12-18 04:12] LABS: BASOPHIL# 0.1 X10e3 (0-0.3); BASOPHIL% 0.8 % (0-2.5); EOSINOPHIL# 0.2 X10e3 (0-0.7); EOSINOPHIL% 3.3 % (0.0-7.0); HEMOGLOBIN 12.1 gm/dL (12.0-16.0); LYMPHOCYTE# 1.5 X10e3 (1.0-3.5); LYMPHOCYTE% 21.7 % (17.0-45.0); MEAN CELL VOLUME 89.6 FL (83-96); MEAN CORPUSCULAR HEMOGLOBIN 29.2 PG (28-34); MEAN CORPUSCULAR HGB CONC 32.6 g/dL (30-36); MEAN PLATELET VOLUME 8.4 FL (6.5-11.5); MONOCYTE# 0.4 X10e3 (0-1.0); MONOCYTE% 5.1 % (3.0-12.0); NEUTROPHIL# 4.8 X10e3 (1.5-7.1); NEUTROPHIL% 69.1 % (40-75); PLATELET COUNT 171 X10e3 (140-420); RED BLOOD COUNT 4.13 X10e (3.90-5.30); RED CELL DISTRIBUTION WIDTH 13.9 % (11.0-15.5); WHITE BLOOD COUNT 6.9 X10e3 (4.0-10.5)
[2016-12-18 04:14] LABS: DIFF IND NO
[2016-12-18 04:31] LABS: BUN/CREATININE RATIO 15.55; CALCIUM SERUM 8.6 mg/dL (8.4-10.2); CREATININE SERUM 0.9 mg/dL (0.6-1.4); GLOM FILT RATE Estimated 58.3 mL/min (>60); POTASSIUM 4.9 mmol/L (3.5-5.1)
[2016-12-19 06:48] LABS: CALCIUM SERUM 8.8 mg/dL (8.4-10.2); GLOM FILT RATE Estimated 51.4 mL/min (>60); POTASSIUM 4.3 mmol/L (3.5-5.1)
[2016-12-20 06:10] LABS: INR 1.1; PROTHROMBIN TIME (PATIENT) 12.2 SECONDS (10.0-11.7)
[2016-12-20 07:04] LABS: BUN/CREATININE RATIO 11.81; CALCIUM SERUM 9.1 mg/dL (8.4-10.2); CREATININE SERUM 1.1 mg/dL (0.6-1.4); GLOM FILT RATE Estimated 45.8 mL/min (>60); POTASSIUM 4.7 mmol/L (3.5-5.1)
== END 2016-12-21 03:15 | DRG 64 ==
LOC: CED 20:21 → CICCU3 23:25 → CED 23:25 → CEDOF 23:25 → CICCU3 23:49 → CEDOF 23:50 → CICCU3 12-17 00:44 → C3A PCU 12-18 19:46
PROVIDERS: Emergency Medicine; Internal Medicine; Nurse Practitioner; Psychiatry & Neurology Neurology; Student in an Organized Health Care Education/Training Program
PROC: B24BZZ4 Ultrasonography of Heart with Aorta, Transesophageal (ICD-10-PCS; principal; 2016-12-16)
PROC: B328YZZ Computerized Tomography (CT Scan) of Bilateral Internal Carotid Arteries using Other Contrast (ICD-10-PCS; 2016-12-16)
PROC: B32RYZZ Computerized Tomography (CT Scan) of Intracranial Arteries using Other Contrast (ICD-10-PCS; 2016-12-16)
PROC: B32GYZZ Computerized Tomography (CT Scan) of Bilateral Vertebral Arteries using Other Contrast (ICD-10-PCS; 2016-12-16)
DX: I63.512 Cerebral infarction due to unspecified occlusion or stenosis of left middle cerebral artery (principal); G92 Toxic encephalopathy; I67.1 Cerebral aneurysm, nonruptured; E87.2 Acidosis; G81.91 Hemiplegia, unspecified affecting right dominant side; F03.91 Unspecified dementia, unspecified severity, with behavioral disturbance; F05 Delirium due to known physiological condition; F10.21 Alcohol dependence, in remission; I10 Essential (primary) hypertension; E78.5 Hyperlipidemia, unspecified; E03.9 Hypothyroidism, unspecified; H54.8 Legal blindness, as defined in USA; I34.0 Nonrheumatic mitral (valve) insufficiency; I70.0 Atherosclerosis of aorta; R47.81 Slurred speech
CPT/HCPCS: 36415; 70450; 70496; 70498; 70551; 71010; 80048; 80053; 80061; 80076; 82550; 82565; 82607; 82947; 83036; 84443; 84484; 85025; 85610; 85730; 86140; 92523-GN; 92610; 93005; 93312; 97112; 97163; 97167; 97530; 99291; 99292; G8978-GP; G8979-GP; G8987-GO; G8988-GO; G8996-GN; G8997-GN; G8998-GN; J1630; J1650; J2250; J2405; J2997; J3010; Q9967